=== PATIENT | male | born 1950 | race Caucasian/White ===

== ENCOUNTER → 2020-11-09 | Outpatient (CLI) | payer MEDICARE, BC ==
--- NOTE | 2020-11-09 13:04 | XR ---
EXAMINATION TYPE: XR foot complete LT DATE OF EXAM: 11/09/2020 Comparison: None Clinical History: 70-year-old male [id number] LT FOOT PAIN Findings: Generalized soft tissue swelling. There is some bony spurring along the dorsal aspect of the TMT join ts on the lateral view. Small plantar heel spur. Midfoot alignment is maintained. Otherwise, no acute fracture, subluxation, dislocation seen. Impression: Generalized soft tissue swelling. While the midfoot alignment is maintained, there is some bony irreg ularity/spurring along the dorsum of the TMT joint articulation on the lateral view. If there is foca l pain in this region or concern for a Lisfranc injury, CT can further evaluate for occult osseous in jury.
== END | disposition home or self-care (01) ==
LOC: RADXRYALE 08:51
PROVIDERS: ATTEND Family Medicine
DX: M77.32 Calcaneal spur, left foot (principal)